=== PATIENT | male | born 1965 | race Caucasian/White ===

== ENCOUNTER 2020-08-28 06:09 | Inpatient (IN) | payer BC ==
[~2020-08-28] VITALS: Ht 175.3 cm; Wt 112.0 kg
[2020-08-28 06:09] VITALS: BP_SYST 180
[2020-08-28] MEDS ORDERED: ASPIRIN 81 MG TAB.CHEW PO ONE (06:30)
[2020-08-28] MEDS ORDERED: NACL 0.9% 1,000 ML IV ONE (06:30)
[2020-08-28 06:49] LABS: BASOPHILS % (AUTO) 0.4 % (0.0-2.0); EOSINOPHILS # (AUTO) 0.1 K/uL (0.0-0.4); EOSINOPHILS % (AUTO) 0.7 % (0.0-4.0); HEMATOCRIT 47.4 % (36-54); HEMOGLOBIN 16.2 g/dL (14.0-18.0); LYMPHOCYTES # (AUTO) 2.5 K/uL (1.0-5.5); LYMPHOCYTES % (AUTO) 29.4 % (20.5-51.5); MEAN CORPUSCULAR HEMOGLOBIN 32 pg (27-31); MEAN CORPUSCULAR HGB CONC 34 % (32-36); MEAN CORPUSCULAR VOLUME 95 fL (79.0-98.0); MONOCYTES # (AUTO) 0.8 K/uL (0.0-1.0); MONOCYTES % (AUTO) 9.5 % (1.7-9.3); NEUTROPHILS # (AUTO) 5.1 K/uL (1.8-7.7); PLATELET COUNT (AUTO) 260 K/uL (130-430); RED BLOOD CELL COUNT(AUTO) 5.01 MIL/uL (4.2-6.2); WHITE BLOOD COUNT (AUTO) 8.5 K/uL (4.8-10.8)
[2020-08-28 07:00] LABS: CALCIUM 9.3 mg/dL (8.4-11.0); CREATININE 0.93 mg/dL (0.55-1.30); POTASSIUM 4.3 mmol/L (3.5-5.1)
[2020-08-28 07:07] LABS: PROTHROMBIN TIME 9.9 SECS (9.5-12.5); TOTAL BILIRUBIN 0.2 mg/dL (0.0-1.0)
[2020-08-28 07:17] LABS: BILIRUBIN,URINE NEGATIVE (NEGATIVE); BLOOD, URINE NEGATIVE (NEGATIVE); CLARITY/URINE CLEAR (CLEAR); COLOR,URINE YELLOW (YELLOW); GLUCOSE,URINE NEGATIVE (NEGATIVE); KETONES,URINE NEGATIVE (NEGATIVE); LEUKOCYTE ESTERASE ,URINE NEGATIVE (NEGATIVE); NITRITE, URINE NEGATIVE (NEGATIVE); PROTEIN URINE NEGATIVE (NEGATIVE); UROBILINOGEN,URINE 0.2 (0.2-1.0)
[2020-08-28] MEDS ORDERED: PANTOPRAZOLE SODIUM 40 MG/VIAL (PROTONIX) IVP ONE (09:00)
[2020-08-28] MEDS ORDERED: MAG-AL HYDROX/SIMETH 30 ML UDC PO ONE (09:00)
[2020-08-28] MEDS ORDERED: NITROGLYCERIN 1 INCH (GM) OINT. TP ONE (09:00)
[2020-08-28] MEDS ORDERED: TELM80TA2 PO (09:34)
[2020-08-28 09:54] LABS: BARBITURATE, URINE NEGATIVE (NEG <=200); BENZODIAZEPINE, URINE NEGATIVE (NEG <=150); CANNABINOID, URINE NEGATIVE (NEG <=50); COCAINE, URINE NEGATIVE (NEG <=150); METHAMPHETAMINES SCREEN,URINE NEGATIVE (NEG <=500); OPIATE, URINE NEGATIVE (NEG <=100); PHENCYCLIDINE SCREEN,URINE NEGATIVE (NEG <=25); UR TRICYCLIC ANTIDEPRESSANTS NEGATIVE (NEG <=300); URINE AMPHETAMINE NEGATIVE (NEG <=500); URINE METHADONE NEGATIVE (NEG <=200); URINE OXYCODONE SCREEN NEGATIVE (NEG <=100); URINE PROPOXYPHENE SCREEN NEGATIVE (NEG <=300)
[2020-08-28 10:05] VITALS: BP_SYST 186
[2020-08-28] MEDS ORDERED: LOSARTAN POTASSIUM 50 MG TABLET (COZAAR) PO ONE (10:30)
[2020-08-28 12:00] VITALS: BP_SYST 160
[2020-08-28] MEDS ORDERED: ENALAPRILAT DIHYDRATE 1.25 MG/ML VIAL IVP PRN (13:15)
[2020-08-28] MEDS ORDERED: cloNIDine HCL 0.1 MG TABLET PO PRN (13:15)
[2020-08-28 13:34] LABS: CHOLESTEROL 184 mg/dL (<200); HDL CHOLESTEROL 51 mg/dL (>45); LDL CHOLESTEROL 122 mg/dL (<100); TRIGLYCERIDES 149 mg/dL (30-150)
[2020-08-28 16:00] VITALS: BP_SYST 131
[2020-08-28 20:00] VITALS: BP_SYST 128
[2020-08-29] VITALS: BP_SYST 122
[2020-08-29 07:31] LABS: ALBUMIN 3.4 g/dL (3.4-4.8); CALCIUM 9.2 mg/dL (8.4-11.0); CREATININE 0.88 mg/dL (0.55-1.30); POTASSIUM 4.1 mmol/L (3.5-5.1); THYROID STIMULATING HORMONE 0.75 uIu/mL (0.36-3.74); TOTAL BILIRUBIN 0.4 mg/dL (0.0-1.0)
[2020-08-29 08:00] VITALS: BP_SYST 158
[2020-08-29] MEDS ORDERED: REGADENOSON 0.4 MG/5 ML SYRINGE IVP ONE (09:00)
[2020-08-29] MEDS ORDERED: amLODIPine BESYLATE 5 MG TABLET PO SCH (09:00)
[2020-08-29] MEDS ORDERED: ASPIRIN 81 MG TAB.CHEW PO SCH (09:00)
[2020-08-29] MEDS ORDERED: LOSARTAN POTASSIUM 50 MG TABLET (COZAAR) PO SCH (09:00)
[2020-08-29] MEDS ORDERED: ATORVASTATIN 20 MG TABLET PO SCH (09:00)
[2020-08-29] MEDS ORDERED: LOSARTAN POTASSIUM 25 MG TABLET ONE (09:34)
[2020-08-29] MEDS ORDERED: LOSARTAN POTASSIUM 50 MG TABLET (COZAAR) ONE (09:47)
[2020-08-29] MEDS ORDERED: LIP20 PO (10:57)
[2020-08-29] MEDS ORDERED: LOSA50TA3 PO (10:57)
[2020-08-29] MEDS ORDERED: AMLO5TAB4 PO (10:57)
[2020-08-29 13:50] VITALS: BP_SYST 132
[2020-08-29 14:12] VITALS: BP_SYST 132
== END 2020-08-29 14:15 | disposition home or self-care (01) | DRG 311 ==
LOC: SED 06:09 → STU 08:59
PROVIDERS: ADMIT Internal Medicine Hospice and Palliative Medicine; ATTEND Internal Medicine Hospice and Palliative Medicine
DX: I20.9 Angina pectoris, unspecified (principal); I10 Essential (primary) hypertension; J44.9 Chronic obstructive pulmonary disease, unspecified; E66.01 Morbid (severe) obesity due to excess calories; F17.210 Nicotine dependence, cigarettes, uncomplicated; Z20.822 Contact with and (suspected) exposure to COVID-19; E78.5 Hyperlipidemia, unspecified; M19.90 Unspecified osteoarthritis, unspecified site; Z86.73 Personal history of transient ischemic attack (TIA), and cerebral infarction without residual deficits; Z68.36 Body mass index [BMI] 36.0-36.9, adult
CPT/HCPCS: 36415; 70450-TC; 71045; 76376; 80053; 80061; 80307; 81003; 82550-TC; 83690-TC; 83880; 84443-TC; 84484; 85025; 85379; 85610-TC; 93005; 93017; 93306; 93880; C9113; G0378; J2785; J7030

== ENCOUNTER 2022-02-28 04:49 | Emergency (ER) | payer BC ==
[~2022-02-28] VITALS: Ht 175.3 cm; Wt 108.9 kg
[~2022-02-28 04:49] MED LIST: AMLO5TAB4 PO; LIP20 PO; LOSA50TA3 PO
[2022-02-28 04:53] VITALS: BP_SYST 117
--- NOTE | 2022-02-28 05:00 | NUR ---
Pt ambulatory from home with c/o Left lower back pain accompanied by nausea and loose stools x1 day. Pain worsened this morning; 9/10 pain scale. Pt denies any vomiting, fevers, dysuria. PMH of HTN and COPD. Pt arrived to ED in no acute distress, breathing adequately on RA.
--- NOTE | 2022-02-28 05:12 | NUR ---
Patient triaged and placed in room 3. VSS and patient appears in no acute distress at this time. MD Boland notified of need for MSE. Report given to HEMALATHA Tafoya.
--- NOTE | 2022-02-28 05:19 | NUR ---
ermd at bedside evaluating pt
[2022-02-28] MEDS ORDERED: MORPHINE 4 MG INJ. 4 MG/ML VIAL IM ONE (05:45)
[2022-02-28] MEDS ORDERED: CYCLOBENZAPRINE HCL 10 MG TABLET (FLEXERIL) PO ONE (05:45)
[2022-02-28] MEDS ORDERED: KETOROLAC TROMETHAMINE 60 MG/2 ML VIAL IM ONE (05:45)
--- NOTE | 2022-02-28 05:56 | NUR ---
Ultrasound at bedside
[2022-02-28] MEDS ORDERED: ONDANSETRON 4 MG ODT TAB PO ONE (06:15)
[2022-02-28 06:36] LABS: BILIRUBIN,URINE 1+ (NEGATIVE); BLOOD, URINE NEGATIVE (NEGATIVE); CLARITY/URINE CLEAR (CLEAR); COLOR,URINE YELLOW (YELLOW); GLUCOSE,URINE NEGATIVE (NEGATIVE); KETONES,URINE TRACE (NEGATIVE); LEUKOCYTE ESTERASE ,URINE NEGATIVE (NEGATIVE); NITRITE, URINE NEGATIVE (NEGATIVE); PH,URINE 5.5 (5.0-8.0); PROTEIN URINE TRACE (NEGATIVE); UROBILINOGEN,URINE 0.2 (0.2-1.0)
[2022-02-28 06:42] LABS: BACTERIA,URINE RARE /HPF (None Seen); RBC,URINE NONE SEEN /HPF (0-3); WBC,URINE NONE SEEN /HPF (0-3)
[2022-02-28 06:43] LABS: CALCIUM OXALATE CRYSTALS,UR 0-10 /HPF (None Seen)
[2022-02-28 06:44] LABS: MUCUS,URINE None Seen /LPF (None Seen)
--- NOTE | 2022-02-28 06:48 | NUR ---
pt resting, vss, reports pain has subsided at 3/10
[2022-02-28] MEDS ORDERED: ACET-2634 PO (07:22)
[2022-02-28] MEDS ORDERED: NAPR-690 PO (07:24)
[2022-02-28] MEDS ORDERED: CYCL10TA24 PO (07:24)
[2022-02-28 07:30] VITALS: BP_SYST 123
--- NOTE | 2022-02-28 07:31 | NUR ---
PT CLEARED FOR DC BY DR. MARIN. NAD NOTED, AT BS. PT VERBALIZED UNDERSTANDING OF DC INSTRUCTIONS. PT TO F/U WITH PMD TODAY. RX SENT TO PT'S PHARM. PT AMBULATED OUT OF ED IN STABLE CONDITION.
== END 2022-02-28 07:31 | disposition home or self-care (01) ==
LOC: SED 04:49
DX: S39.012A Strain of muscle, fascia and tendon of lower back, initial encounter (principal); W19.XXXA Unspecified fall, initial encounter; Y93.89 Activity, other specified; Y92.89 Other specified places as the place of occurrence of the external cause; Y99.8 Other external cause status
CPT/HCPCS: 99284; 93978; 81000; 96372; Q0162; J1885; J2270

== ENCOUNTER 2023-04-14 07:14 | Emergency (ER) | payer BC ==
[~2023-04-14] VITALS: Ht 175.3 cm; Wt 113.4 kg
[~2023-04-14 07:14] MED LIST changes: +ACET-2634 PO; +CYCL10TA24 PO; +LOSA-413 PO; -LOSA50TA3 PO; +NAPR-690 PO
[2023-04-14 07:34] VITALS: BP_SYST 214; PULSE 84; RESP 16; TEMP 97.7; O2SAT 96
[2023-04-14 07:44] LABS: HEMOGLOBIN 16.3 g/dL (14.0-18.0); LYMPHOCYTES # (AUTO) 1.8 K/uL (1.0-5.5); LYMPHOCYTES % (AUTO) 21.6 % (20.5-51.5); MEAN CORPUSCULAR HEMOGLOBIN 32 pg (27-31); MEAN CORPUSCULAR HGB CONC 33 % (32-36); MONOCYTES # (AUTO) 0.8 K/uL (0.0-1.0)
[2023-04-14 07:55] LABS: BASOPHILS % (AUTO) 0.5 % (0.0-2.0); EOSINOPHILS % (AUTO) 0.6 % (0.0-4.0); MEAN CORPUSCULAR VOLUME 95 fL (79.0-98.0); MONOCYTES % (AUTO) 9.5 % (1.7-9.3); NEUTROPHILS # (AUTO) 5.6 K/uL (1.8-7.7); NEUTROPHILS % (AUTO) 67.8 % (40.0-70.0); RED BLOOD CELL COUNT(AUTO) 5.17 MIL/uL (4.2-6.2); RED CELL DISTRIBUTION WIDTH 13.7 % (9.0-15.0); WHITE BLOOD COUNT (AUTO) 8.3 K/uL (4.8-10.8)
[2023-04-14 08:00] LABS: ALBUMIN 3.7 g/dL (3.4-4.8); CREATININE 0.88 mg/dL (0.55-1.30); POTASSIUM 4.5 mmol/L (3.5-5.1); TOTAL BILIRUBIN 0.4 mg/dL (0.0-1.0); TOTAL PROTEIN, SERUM 7.6 g/dL (6.4-8.3)
[2023-04-14] MEDS ORDERED: KETOROLAC TROMETHAMINE 30 MG VIAL IVP ONE (08:00)
[2023-04-14 08:10] LABS: PLATELET COUNT (AUTO) 254 K/uL (130-430)
[2023-04-14] MEDS ORDERED: TELM80TA2 PO (08:40)
[2023-04-14] MEDS ORDERED: NOR10 PO (08:40)
[2023-04-14] MEDS ORDERED: NABU-140 PO (09:09)
[2023-04-14] MEDS ORDERED: METH-776 PO (09:09)
[2023-04-14 09:25] VITALS: BP_SYST 149; PULSE 88; RESP 18; TEMP 98; O2SAT 96
== END 2023-04-14 09:23 | disposition home or self-care (01) ==
LOC: SED 07:14
DX: M54.12 Radiculopathy, cervical region (principal); R20.2 Paresthesia of skin; F17.210 Nicotine dependence, cigarettes, uncomplicated; Z79.899 Other long term (current) drug therapy
CPT/HCPCS: 36415; 70450-TC; 76376; 80053; 84484; 85025; 93005; 99284